=== PATIENT | male | born 1960 | race Caucasian/White ===

== ENCOUNTER 2021-09-11 14:48 | Inpatient (IN) ==
[2021-09-11 15:58] LABS: ABS Lymphocytes 0.1 10^3/ul (1.0-4.8); ABS Monocytes 0.4 10^3/ul (0-0.8); ABS Neutrophils 2.6 10^3/ul (1.5-7.7); Hematocrit 41 % (42-52); Hemoglobin 14.2 g/dL (14.0-18.0); Lymphocyte % 2.1 %; Mean Corpuscular HGB Conc 35 g/dL (31-36); Mean Corpuscular Hemoglobin 31 pg (27-31); Mean Corpuscular Volume 90 fL (80-94); Mean Platelet Volume 7.9 fL (7.4-10.4); Platelet Count 140 10^3/uL (150-450); Red Blood Count 4.53 10^6 /uL (4.18-5.48); Red Cell Distribution Width 13 % (10-15); White Blood Count 3.1 10^3/uL (3.5-10.8)
[2021-09-11 16:07] LABS: Activated Partial Thrombo Time 36.8 seconds (26.0-38.0); INR 1.25 (0.86-1.15)
[2021-09-11] MEDS ORDERED: Lactated Ringers 1000 ml BAG 1,000 ML IV ONE ×3 (16:17→20:18)
[2021-09-11 16:43] LABS: Albumin 4.6 g/dL (3.2-5.2); Albumin/Globulin Ratio 1.7 (1-3); C Reactive Protein 50.95 mg/L (<8.01); Calcium 9.2 mg/dL (8.6-10.3); Globulin 2.7 g/dL (2-4); Potassium 3.7 mmol/L (3.5-5.0); Total Bilirubin 1.2 mg/dL (0.2-1.0); Total Protein 7.3 g/dL (6.4-8.9); eGFR CKD-EPI 110.5 (>60)
[2021-09-11] MEDS ORDERED: Iodixanol (CONTRAST) 320 MG/ML 100 ML SDV IV ONE (16:45)
[2021-09-11 17:26] LABS: High Sensitivity Troponin 1 Hr 4 pg/mL (<20)
[2021-09-11] MEDS ORDERED: Albuterol HFA INHALER 8 gm MDI INH ONE (18:06)
[2021-09-11] MEDS ORDERED: methylPREDNISolone 125 mg 2 ML VIAL IV ONE (19:18)
[2021-09-11] MEDS ORDERED: Albuterol HFA INHALER 8 gm MDI INH PRN (20:19)
[2021-09-11] MEDS ORDERED: Potassium Chlor 20 meq TAB.ER PO ONE (20:43)
[2021-09-11 20:56] LABS: Urine Appearance Clear; Urine Bilirubin Negative (Negative); Urine Blood Negative (Negative); Urine Color Yellow; Urine Glucose 1+(50 mg/dL) (Negative); Urine Ketones 1+ (Negative); Urine Nitrite Negative (Negative); Urine Protein Negative (Negative); Urine Specific Gravity 1.033 (1.002-1.030); Urine Urobilinogen Negative (Negative)
[2021-09-11] MEDS: Enoxaparin 40 MG/0.4 ML SYR SUBCUT SCH (22:22)
[2021-09-11] MEDS: cefTRIAXone 1 gm/50 mL NS BAG 1 GM/50 ML BAG IVPB SCH (22:22)
[2021-09-12 05:48] LABS: ABS Lymphocytes 0.2 10^3/ul (1.0-4.8); ABS Monocytes 0.1 10^3/ul (0-0.8); ABS Neutrophils 2.3 10^3/ul (1.5-7.7); Hematocrit 35 % (42-52); Hemoglobin 12.2 g/dL (14.0-18.0); Lymphocyte % 6.8 %; Mean Corpuscular HGB Conc 35 g/dL (31-36); Mean Corpuscular Hemoglobin 31 pg (27-31); Mean Corpuscular Volume 89 fL (80-94); Mean Platelet Volume 7.9 fL (7.4-10.4); Platelet Count 114 10^3/uL (150-450); Red Cell Distribution Width 13 % (10-15); White Blood Count 2.6 10^3/uL (3.5-10.8)
[2021-09-12 06:03] LABS: Albumin 3.4 g/dL (3.2-5.2); Albumin/Globulin Ratio 1.7 (1-3); Calcium 8.4 mg/dL (8.6-10.3); Magnesium 1.5 mg/dL (1.9-2.7); Potassium 3.4 mmol/L (3.5-5.0); Total Bilirubin 0.6 mg/dL (0.2-1.0); Total Protein 5.4 g/dL (6.4-8.9)
[2021-09-12] MEDS ORDERED: Potassium Chlor 20 meq TAB.ER PO ONE (06:18)
[2021-09-12] MEDS ORDERED: Magnesium Sulfate 2 gm BAG 2 GM/50 ML BAG IVPB ONE (06:19)
[2021-09-12 08:09] LABS: TSH Ultra Thyroid Stim Horm 0.24 mcIU/mL (0.34-5.60)
[2021-09-12 08:53] LABS: Osmolality Serum 260 mOsm/kg (275-295)
[2021-09-12 09:28] LABS: Free T4 1.09 ng/dL (0.61-1.12)
[2021-09-12 09:37] LABS: Folate 11.75 ng/mL (5.90-24.80)
[2021-09-12] MEDS: NS 0.9% 1000 ml BAG 1,000 ML IV SCH ×2 (10:13→23:00)
[2021-09-12] MEDS: Multivitamins/Minerals TAB PO SCH (14:32)
[2021-09-12 15:36] LABS: Urine Creatinine Concentration 25.15 mg/dL; Urine Sodium Concentration < 18 mmol/L
[2021-09-12 20:27] LABS: Urine Osmo 235 mOsm/kg (150-1150)
[2021-09-12] MEDS: cefTRIAXone 1 gm/50 mL NS BAG 1 GM/50 ML BAG IVPB SCH (21:12)
[2021-09-12] MEDS: Enoxaparin 40 MG/0.4 ML SYR SUBCUT SCH (21:13)
[2021-09-13 07:00] LABS: ABS Lymphocytes 0.4 10^3/ul (1.0-4.8); ABS Monocytes 0.6 10^3/ul (0-0.8); ABS Neutrophils 4.5 10^3/ul (1.5-7.7); Hematocrit 37 % (42-52); Hemoglobin 12.9 g/dL (14.0-18.0); Lymphocyte % 6.8 %; Mean Corpuscular HGB Conc 35 g/dL (31-36); Mean Corpuscular Hemoglobin 32 pg (27-31); Mean Corpuscular Volume 90 fL (80-94); Mean Platelet Volume 7.6 fL (7.4-10.4); Platelet Count 129 10^3/uL (150-450); Red Blood Count 4.08 10^6 /uL (4.18-5.48); Red Cell Distribution Width 13 % (10-15); White Blood Count 5.5 10^3/uL (3.5-10.8)
[2021-09-13 07:37] LABS: Calcium 8.2 mg/dL (8.6-10.3); Magnesium 1.8 mg/dL (1.9-2.7); Potassium 3.5 mmol/L (3.5-5.0); eGFR CKD-EPI 117.5 (>60)
[2021-09-13] MEDS ORDERED: Magnesium Sulfate 2 gm BAG 2 GM/50 ML BAG IVPB ONE (08:22)
[2021-09-13] MEDS ORDERED: Potassium Chlor 20 meq TAB.ER PO ONE (08:24)
[2021-09-13] MEDS: Multivitamins/Minerals TAB PO SCH (10:18)
[2021-09-13 12:49] VITALS: BP 141/82
== END 2021-09-13 16:10 | disposition home or self-care (01) | DRG 113 ==
LOC: ED 14:48 → SUATTDRO 20:20 → EDHOLD 20:20 → MED 21:40
PROVIDERS: ADMIT Hospitalist; ATTEND Student in an Organized Health Care Education/Training Program